=== PATIENT | male | born 1985 | race Caucasian/White ===

== ENCOUNTER 2018-08-22 18:15 | Emergency (ER) | payer SELFPAY ==
[~2018-08-22] VITALS: Ht 180.3 cm; Wt 88.9 kg
[2018-08-22 18:31] VITALS: BP 164/98; PULSE 86; RESP 18; Ht 180.3 cm; Wt 88.9 kg
== END 2018-08-22 19:55 | disposition left against medical advice (07) ==
LOC: FTE 18:15
DX: Z53.21 Procedure and treatment not carried out due to patient leaving prior to being seen by health care provider (principal)